=== PATIENT | male | born 1975 | race Caucasian/White ===

== ENCOUNTER 2024-09-21 07:02 | Emergency (ER) | payer OTHER, SELFPAY ==
[2024-09-21 07:09] VITALS: BP 132/83
[2024-09-21 07:21] VITALS: BP 131/83
--- NOTE | 2024-09-21 07:38 | ED.GENMED ---
History of Present Illness
General
Chief Complaint: Cardiac Symptoms
Source: patient
Time Seen by Provider: 09/21/24 07:13
History of Present Illness
History of Present Illness:
49yoM with a history of asthma presenting for evaluation of palpitations. Patient woke up around 1 AM this morning with palpitations. He states it felt like his heart was skipping beats. He put on his daughter's Apple Watch. His heart rate was
in the 90s and intermittently went to the 100s. He thought he may be dehydrated so drink 2 L of water. His heart rate improved to the 80s after drinking fluids. Patient is currently feeling improved. He denies any associated chest pain,
shortness of breath, diaphoresis, dizziness, syncope. He admits to drinking a lot of coffee yesterday and had a cup of coffee around 7:30 PM.
Phy Exam
General Physical Exam
General Presentation: well appearing and no apparent distress
General age: appears stated age
General Skin: warm and dry
General Habitus: normal
General Mental: alert
ENT Exam
ENT Exam: normocephalic
Cardiovascular Exam
Cardiovascular Exam: regular rate/rhythm and no murmur
Pulmonary Exam
Pulmonary Exam: lungs clear, no respiratory distress, no rales, no crackles and no rhonchi
Neurological Exam
Neurological Exam: alert
Ravindra Coma Scale
Eye Opening: Spontaneous
Verbal Response: Oriented
Motor Response: Obeys Commands
GCS Total Score: 15
Skin Exam
Skin Exam: normal color and warm/dry
Psychiatric Exam
Psychiatric Exam: normal mood/affect
Course
Orders/Labs/Results
Orders:
Orders
09/21/24 07:11
ECG [Electrocardiogram (*1)] Urgent
Reason for Study: Palpitations
EKG- Treatment ONCE
09/21/24 07:37
Cardiac Monitoring- Treatment ONCE
09/21/24 07:53
Complete Blood Count/With Diff Urgent
Comprehensive Metabolic Panel Urgent
Magnesium Urgent
TSH Reflex To Free T4 Urgent
Troponin I Urgent
Abnormal Lab Results
09/21/24
07:53
BUN 22 H mg/dl
(9-20)
Total Bilirubin 1.4 H mg/dl
(0.2-1.3)
Alkaline Phosphatase 25 L U/L
(38-126)
09/21/24 07:53
09/21/24 07:53
Vital Signs
Initial and Last Documented VS:
Initial Vital Signs
Pulse Resp BP Pulse Ox
77 18 132/83 95
09/21/24 07:09 09/21/24 07:09 09/21/24 07:09 09/21/24 07:09
Last Documented Vital Signs
Temp Pulse Resp BP Pulse Ox
97.9 F 69 21 125/75 95
09/21/24 09:38 09/21/24 09:30 09/21/24 09:30 09/21/24 09:00 09/21/24 09:30
MDM/Problems Addressed
Differential Diagnosis Includes:
49yoM here with palpitations that woke him up from sleep last night. Now improved after drinking fluids. Admits to drinking a lot of coffee yesterday. No CP/SOB. No dizziness or syncope. He is afebrile and hemodynamically stable. He is
well-appearing in no acute distress. Heart rate in the 70s during exam. Sinus rhythm noted on night monitor. Exam reassuring. Differential diagnosis includes but is not limited to: Side effect of caffeine, dehydration, electrolyte abnormality,
thyroid dysfunction, arrhythmia
Initial ED plan: Check cardiac labs, magnesium, TSH, and EKG. Will place on cardiac monitoring.
*EKG
Interpreted by ED Provider?: Yes
EKG Intrepretation Date: 09/21/24
Heart Rate: 74
Rate: normal
Rhythm: sinus
[place]: normal axis
Interval: normal interval
QRS Pattern: normal QRS
Ischemia: no ischemia
*Critical Care Note
Total Time (30-74mins, 75-104mins- exclusive of procedures): Not Applicable
Update Note
Update Note:
EKG shows normal sinus rhythm without ischemic changes or ectopy. Labs unremarkable including normal electrolytes, TSH, and troponin. Patient remains asymptomatic on reassessment. He is stable for discharge. Advised decreased caffeine intake.
Advised f/u with PCP and ED return precautions discussed. He expressed understanding and in agreement with plan. He was discharged in stable condition.
ED Attending Note
-
Portions of this chart may have been created with voice recognition software.� Occasional wrong word or��sound alike� substitutions may have occurred due to the inherent limitations of voice recognition software.
Discharge Plan
Departure
Patient Disposition: Home (Routine Discharge)
Date of Disposition: 09/21/24
Time of Disposition: 09:31
Patient with high blood pressure during this ER visit?: No
Discharge Problem:
Palpitations
Instructions: Heart Palpitations
Referrals:
Nirmala Klein PA-C [Family Provider] -
Activity Restrictions/Additional Instructions:
Decrease caffeine intake and drink plenty of fluids.
Please follow-up with your family doctor. Return to the ER with any new or worsening symptoms.
Interventions
Interventions:
*Risk Screen - Suicide Last Done: 09/21/24 07:09
*General Assessment Last Done: 09/21/24 07:09
*Neglect/Abuse Screening Last Done: 09/21/24 07:09
ED- Fall Risk Assessment Last Done: 09/21/24 07:34
*ED COVID-19 Vaccine History Last Done: 09/21/24 07:09
*Nursing Disposition Last Done: 09/21/24 09:43
ED- Pulmonary Assessment Last Done: 09/21/24 07:34
ED- Cardiac Assessment Last Done: 09/21/24 07:34
Discharge Date and Time
Discharge Date/Time: 09/21/24 09:43
Print Language: [id number]
[2024-09-21 08:00] VITALS: BP 122/73
[2024-09-21 08:01] LABS: % Basophils 1.9 % (0-2); % Eosinophils 4.8 % (0-6); % Immature Granulocytes 0.3 % (0-0.5); % Lymphocytes 23.1 % (20.5-51.1); % Monocytes 8.2 % (1.7-9.3); % Neutrophils 61.7 % (42.2-75.2); Absolute Basophils 0.1 10^3/uL (0-0.2); Absolute Eosinophils 0.3 10^3/uL (0-0.7); Absolute Lymphocytes 1.4 10^3/uL (1.2-3.4); Absolute Monocytes 0.5 10^3/uL (0.1-0.6); Absolute Neutrophils 3.6 10^3/uL (1.4-6.5); Hematocrit 49.9 % (39.0-52.0); Hemoglobin 17.5 g/dL (13.0-18.0); Mean Corp Hgb Conc. 35.1 g/dL (33.0-37.0); Mean Corpuscular Hgb 29.5 pg (27.0-31.0); Mean Corpuscular Volume 84.1 fL (80.0-94.0); Mean Platelet Volume 9.2 fL (7.4-10.4); Nucleated Red Blood Cells % 0 % (-); Platelet Count 225 10^3/uL (130-400); Red Blood Cell Count 5.93 10^6/uL (4.70-6.10); Red Cell Dist. Width 13.2 % (11.5-14.5); White Blood Cell Count 5.9 10^3/uL (4.8-10.8)
[2024-09-21 08:29] LABS: ALT (SGPT) 37 U/L (0-50); AST (SGOT) 43 U/L (17-59); Albumin 4.6 g/dl (3.5-5.0); Alkaline Phosphatase 25 U/L (38-126); Blood Urea Nitrogen 22 mg/dl (9-20); Calcium 9.4 mg/dl (8.4-10.2); Carbon Dioxide 29 mmol/L (22-30); Chloride 103 mmol/L (98-107); Glucose 98 mg/dl (70-99); Magnesium 2.3 mg/dl (1.6-2.3); Potassium 4.9 mmol/L (3.5-5.1); Sodium 140 mmol/L (135-145); Total Bilirubin 1.4 mg/dl (0.2-1.3); Total Protein 6.8 g/dl (6.3-8.2); eGFR > 60.00
[2024-09-21 08:41] LABS: Troponin I < 0.012 ng/ml
[2024-09-21 09:00] VITALS: BP 125/75
[2024-09-21 09:01] LABS: TSH Reflex To Free T4 3.22 uIU/ml (0.47-4.68)
== END 2024-09-21 09:43 | disposition home or self-care (01) ==
LOC: EMR 07:02
PROVIDERS: Physician Assistant; EMERGENCY PHYSICIAN Emergency Medicine; FAMILY PHYSICIAN Physician Assistant Medical
DX: R00.2 Palpitations (principal); J45.909 Unspecified asthma, uncomplicated
CPT/HCPCS: 99284; 80053; 83735; 84443; 84484; 85025; 93005